=== PATIENT | female | born 1950 | race Caucasian/White ===

== ENCOUNTER 2021-07-28 23:36 | Inpatient (IN) | payer MEDICARE ==
[2021-07-29] MEDS ORDERED: Acetaminophen 500 MG TAB ONE (01:32)
[2021-07-29] MEDS ORDERED: Ondansetron PF 4 MG/2 ML Vial IVP PRN (02:20)
[2021-07-29 04:13] LABS: Anion Gap 17 mmol/L (10-20); BUN (Urea Nitrogen) 20 mg/dL (9.8-20.1); Calc. Creatinine Clearance 51 mL/min (70-130); Carbon Dioxide 20 mmol/L (23-31); Chloride 105 mmol/L (98-107); Glucose 135 mg/dL (83-110); Potassium 4.1 mmol/L (3.5-5.1); Sodium 138 mmol/L (136-145)
[2021-07-29] MEDS ORDERED: ALPRAZolam 0.25 MG TAB PO SCH (04:30)
[2021-07-29 04:41] LABS: #Lymphocytes 0.4 thou/uL (1.20-3.40); #Monocytes 0.1 thou/uL (0.11-0.59); #Neutrophils 3.5 thou/uL (1.40-6.50); %Eosinophils 0.4 % (0.0-10.0); %Lymphocytes 10.8 % (21.0-51.0); %Monocytes 1.4 % (0.0-10.0); %Neutrophils 87.4 % (42.0-75.0); Hemoglobin 13.3 g/dL (12.0-16.0); Mean Corpuscular HGB CONC 32.6 g/dL (32.0-36.0); Mean Corpuscular Hemoglobin 32.7 pg (27.0-31.0); Mean Platelet Volume 8.5 fL (7.4-10.4); Platelet Count 300 thou/uL (130-400); RBC Distribution Width 12.8 % (11.5-14.5); Red Blood Cell (RBC) Count 4.08 mill/uL (4.20-5.40)
[2021-07-29] MEDS: methylPREDNISolone Sod Succ 40 MG VIAL IVP SCH ×4 (06:06→23:12)
[2021-07-29] MEDS: NIFEdipine XL 60 MG TAB PO SCH (08:32)
[2021-07-29] MEDS: Loratadine 10 MG TAB PO SCH (08:33)
[2021-07-29] MEDS: Aspirin 81 mg Enteric Coated Tablet PO SCH (08:33)
[2021-07-29] MEDS: Enoxaparin Sodium 40 MG/0.4 ML SYRINGE SC SCH (08:34)
[2021-07-29] MEDS ORDERED: Levothyroxine Sodium 25 MCG TAB PO SCH (08:45)
[2021-07-29] MEDS ORDERED: ALPRAZolam 0.5 MG TAB PO SCH (09:00)
[2021-07-29] MEDS: Escitalopram Oxalate 10 mg Tablet PO SCH (09:14)
[2021-07-29] MEDS: Azithromycin 500 MG in Sodium Chloride 0.9% 250 ML 250 ML IVPB SCH (11:04)
[2021-07-29] MEDS ORDERED: Cepastat Lozenges 1 LOZ PO PRN (11:27)
[2021-07-29] MEDS ORDERED: guaiFENesin ER 600 MG TAB PO SCH (11:30)
[2021-07-29] MEDS: ALPRAZolam 0.5 MG TAB PO SCH ×2 (17:02→23:11)
[2021-07-29] MEDS: Mometasone 200 MCG/Formoterol 5 MCG 120 PUFF INHALER INH SCH (19:16)
[2021-07-29] MEDS: guaiFENesin ER 600 MG TAB PO SCH (20:15)
[2021-07-29] MEDS: Famotidine/PF 20 mg/2ml Vial SLOW IVP SCH (20:15)
[2021-07-29] MEDS: Acetaminophen 325 MG TAB PO PRN (23:11)
[2021-07-30 03:27] LABS: #Lymphocytes 0.4 thou/uL (1.20-3.40); #Monocytes 0.3 thou/uL (0.11-0.59); #Neutrophils 4.3 thou/uL (1.40-6.50); %Eosinophils 0.1 % (0.0-10.0); %Monocytes 5.3 % (0.0-10.0); %Neutrophils 86.7 % (42.0-75.0); Hemoglobin 12.7 g/dL (12.0-16.0); Mean Corpuscular Hemoglobin 32.1 pg (27.0-31.0); Mean Platelet Volume 7.9 fL (7.4-10.4); Platelet Count 254 thou/uL (130-400); RBC Distribution Width 12.6 % (11.5-14.5); Red Blood Cell (RBC) Count 3.97 mill/uL (4.20-5.40)
[2021-07-30 03:45] LABS: Anion Gap 10 mmol/L (10-20); BUN (Urea Nitrogen) 27 mg/dL (9.8-20.1); Calc. Creatinine Clearance 52 mL/min (70-130); Calcium 9.3 mg/dL (7.8-10.44); Carbon Dioxide 25 mmol/L (23-31); Chloride 107 mmol/L (98-107); Glucose 164 mg/dL (83-110); Potassium 3.7 mmol/L (3.5-5.1); Sodium 138 mmol/L (136-145)
[2021-07-30] MEDS: MUCINEX INSTASOOTHE SPRY (115 ML BOT) PO PRN ×2 (05:11→20:38)
[2021-07-30] MEDS: Levothyroxine Sodium 25 MCG TAB PO SCH (05:12)
[2021-07-30] MEDS: methylPREDNISolone Sod Succ 40 MG VIAL IVP SCH ×2 (05:12→20:37)
[2021-07-30] MEDS: Mometasone 200 MCG/Formoterol 5 MCG 120 PUFF INHALER INH SCH ×2 (07:14→18:48)
[2021-07-30] MEDS ORDERED: traMADol HCl 50 MG TAB PO PRN (08:55)
[2021-07-30] MEDS: Aspirin 81 mg Enteric Coated Tablet PO SCH ×2 (09:16→09:19)
[2021-07-30] MEDS: guaiFENesin ER 600 MG TAB PO SCH ×2 (09:16→20:37)
[2021-07-30] MEDS: Loratadine 10 MG TAB PO SCH (09:16)
[2021-07-30] MEDS: Escitalopram Oxalate 10 mg Tablet PO SCH (09:16)
[2021-07-30] MEDS: NIFEdipine XL 60 MG TAB PO SCH (09:16)
[2021-07-30] MEDS: Famotidine/PF 20 mg/2ml Vial SLOW IVP SCH (09:17)
[2021-07-30] MEDS: Enoxaparin Sodium 40 MG/0.4 ML SYRINGE SC SCH (09:17)
[2021-07-30] MEDS: ALPRAZolam 0.5 MG TAB PO SCH ×4 (09:31→20:37)
[2021-07-30] MEDS: Fluticasone Propionate Nasal Spray 16 gm Bottle NASAL SCH (11:14)
[2021-07-30] MEDS: Azithromycin 500 MG in Sodium Chloride 0.9% 250 ML 250 ML IVPB SCH (11:19)
[2021-07-31] MEDS: Acetaminophen 325 MG TAB PO PRN ×2 (00:37→22:31)
[2021-07-31 03:33] LABS: #Basophils 0.2 thou/uL (0.0-0.2); #Lymphocytes 0.2 thou/uL (1.20-3.40); #Monocytes 0.3 thou/uL (0.11-0.59); #Neutrophils 8.5 thou/uL (1.40-6.50); %Basophils 1.8 % (0.0-1.0); %Eosinophils 0.1 % (0.0-10.0); %Lymphocytes 2.2 % (21.0-51.0); %Monocytes 3.4 % (0.0-10.0); %Neutrophils 92.6 % (42.0-75.0); Hemoglobin 12.9 g/dL (12.0-16.0); Mean Corpuscular HGB CONC 32.8 g/dL (32.0-36.0); Mean Corpuscular Hemoglobin 32.8 pg (27.0-31.0); Mean Corpuscular Volume 99.8 fL (78.0-98.0); Mean Platelet Volume 7.5 fL (7.4-10.4); Platelet Count 281 thou/uL (130-400); RBC Distribution Width 12.5 % (11.5-14.5); Red Blood Cell (RBC) Count 3.92 mill/uL (4.20-5.40); White Blood Cell (WBC) Count 9.1 thou/uL (4.8-10.8)
[2021-07-31 03:52] LABS: Anion Gap 10 mmol/L (10-20); BUN (Urea Nitrogen) 23 mg/dL (9.8-20.1); Calc. Creatinine Clearance 50 mL/min (70-130); Calcium 9.2 mg/dL (7.8-10.44); Carbon Dioxide 27 mmol/L (23-31); Chloride 107 mmol/L (98-107); Glucose 148 mg/dL (83-110); Potassium 3.4 mmol/L (3.5-5.1); Sodium 141 mmol/L (136-145)
[2021-07-31] MEDS: Levothyroxine Sodium 25 MCG TAB PO SCH (05:00)
[2021-07-31] MEDS: Mometasone 200 MCG/Formoterol 5 MCG 120 PUFF INHALER INH SCH ×2 (07:39→19:11)
[2021-07-31] MEDS: Enoxaparin Sodium 40 MG/0.4 ML SYRINGE SC SCH ×2 (09:45→09:47)
[2021-07-31] MEDS: guaiFENesin ER 600 MG TAB PO SCH ×2 (09:46→20:26)
[2021-07-31] MEDS: NIFEdipine XL 60 MG TAB PO SCH (09:46)
[2021-07-31] MEDS: Aspirin 81 mg Enteric Coated Tablet PO SCH (09:46)
[2021-07-31] MEDS: Escitalopram Oxalate 10 mg Tablet PO SCH (09:46)
[2021-07-31] MEDS: Loratadine 10 MG TAB PO SCH (09:47)
[2021-07-31] MEDS: ALPRAZolam 0.5 MG TAB PO SCH ×3 (09:47→20:26)
[2021-07-31] MEDS: methylPREDNISolone Sod Succ 40 MG VIAL IVP SCH ×2 (09:48→20:28)
[2021-07-31] MEDS: Fluticasone Propionate Nasal Spray 16 gm Bottle NASAL SCH ×2 (10:00→20:39)
[2021-07-31] MEDS: Azithromycin 500 MG in Sodium Chloride 0.9% 250 ML 250 ML IVPB SCH (10:02)
[2021-07-31] MEDS: Loperamide HCl 1 MG/7.5 ML UDCUP PO PRN (20:26)
[2021-08-01 04:10] VITALS: BMI 19.7
[2021-08-01] MEDS: Acetaminophen 325 MG TAB PO PRN ×2 (04:58→20:23)
[2021-08-01] MEDS: Levothyroxine Sodium 25 MCG TAB PO SCH (05:41)
[2021-08-01] MEDS: Loperamide HCl 1 MG/7.5 ML UDCUP PO PRN ×3 (05:41→20:23)
[2021-08-01] MEDS: Mometasone 200 MCG/Formoterol 5 MCG 120 PUFF INHALER INH SCH ×2 (07:03→19:08)
[2021-08-01] MEDS: Escitalopram Oxalate 10 mg Tablet PO SCH (09:52)
[2021-08-01] MEDS: methylPREDNISolone Sod Succ 40 MG VIAL IVP SCH ×2 (09:52→20:23)
[2021-08-01] MEDS: NIFEdipine XL 60 MG TAB PO SCH (09:52)
[2021-08-01] MEDS: Loratadine 10 MG TAB PO SCH (09:52)
[2021-08-01] MEDS: ALPRAZolam 0.5 MG TAB PO SCH ×3 (09:52→20:22)
[2021-08-01] MEDS: Fluticasone Propionate Nasal Spray 16 gm Bottle NASAL SCH ×2 (09:53→20:25)
[2021-08-01] MEDS: guaiFENesin ER 600 MG TAB PO SCH ×2 (09:53→20:23)
[2021-08-01] MEDS: Aspirin 81 mg Enteric Coated Tablet PO SCH (09:53)
[2021-08-01] MEDS: Azithromycin 500 MG in Sodium Chloride 0.9% 250 ML 250 ML IVPB SCH (12:49)
[2021-08-01 20:17] VITALS: BP 127/75; TEMP 98.5
[2021-08-02] MEDS: Levothyroxine Sodium 25 MCG TAB PO SCH (05:30)
[2021-08-02] MEDS: Mometasone 200 MCG/Formoterol 5 MCG 120 PUFF INHALER INH SCH (06:41)
[2021-08-02] MEDS: NIFEdipine XL 60 MG TAB PO SCH (08:42)
[2021-08-02] MEDS: ALPRAZolam 0.5 MG TAB PO SCH ×2 (08:43→16:11)
[2021-08-02] MEDS: Loperamide HCl 1 MG/7.5 ML UDCUP PO PRN (08:43)
[2021-08-02] MEDS: guaiFENesin ER 600 MG TAB PO SCH (08:43)
[2021-08-02] MEDS: Loratadine 10 MG TAB PO SCH (08:43)
[2021-08-02] MEDS: Escitalopram Oxalate 10 mg Tablet PO SCH (08:43)
[2021-08-02] MEDS: Aspirin 81 mg Enteric Coated Tablet PO SCH (08:44)
[2021-08-02] MEDS: methylPREDNISolone Sod Succ 40 MG VIAL IVP SCH (08:44)
[2021-08-02] MEDS: Enoxaparin Sodium 40 MG/0.4 ML SYRINGE SC SCH (08:44)
[2021-08-02] MEDS: Fluticasone Propionate Nasal Spray 16 gm Bottle NASAL SCH (08:45)
[2021-08-02] MEDS: Azithromycin 500 MG in Sodium Chloride 0.9% 250 ML 250 ML IVPB SCH (10:39)
== END 2021-08-02 17:55 | disposition home health service (06) | DRG 189 ==
LOC: ERS 23:36 → CCU 07-29 02:05 → IMCU/EMU 07-29 16:27 → T4-B 07-31 12:24
PROVIDERS: ADMIT Internal Medicine; ATTEND Internal Medicine
DX: J96.01 Acute respiratory failure with hypoxia (principal); J44.1 Chronic obstructive pulmonary disease with (acute) exacerbation; R64 Cachexia; Z68.1 Body mass index [BMI] 19.9 or less, adult; I25.10 Atherosclerotic heart disease of native coronary artery without angina pectoris; I11.0 Hypertensive heart disease with heart failure; I50.9 Heart failure, unspecified; J96.02 Acute respiratory failure with hypercapnia; E78.5 Hyperlipidemia, unspecified; E03.9 Hypothyroidism, unspecified; Z95.5 Presence of coronary angioplasty implant and graft; Z90.710 Acquired absence of both cervix and uterus; Z98.890 Other specified postprocedural states; Z87.891 Personal history of nicotine dependence
CPT/HCPCS: 36415; 80048; 84145; 85025; 94640; 94660; J0456; J1650; J2920; J7050; J7620; S0028